=== PATIENT | male | born 1945 ===

== ENCOUNTER → 2018-09-20 | Outpatient (CLI) | payer OTHER | LOC: BHFA 13:00 | PROVIDERS: ATTEND Internal Medicine Cardiovascular Disease | DX: R06.02 Shortness of breath (principal); Z95.1 Presence of aortocoronary bypass graft | CPT/HCPCS: 78452; 93017; A9500 ==

== ENCOUNTER → 2018-09-25 | Outpatient (CLI) | payer OTHER | LOC: BHLMT 10:45 | PROVIDERS: ATTEND Internal Medicine Interventional Cardiology | DX: R01.1 Cardiac murmur, unspecified (principal); R06.02 Shortness of breath | CPT/HCPCS: 93306-PO ==